=== PATIENT | female | born 1995 | race Two or more races ===

== ENCOUNTER 2023-01-09 10:16 | Outpatient (CLI) | payer BC, SELFPAY ==
[2023-01-09 11:15] LABS: Hematocrit 40.1 % (37.0-47.0); Mean Corpuscular HGB Conc 32.4 g/dl (32-36); Mean Corpuscular Hemoglobin 28.6 pg (26-34); Mean Corpuscular Volume 88.3 fl (80-100); Mean Platelet Volume 10.3 fl (7.4-10.4); Platelet Count Result 246 k/mm3 (150-375); Red Blood Count 4.54 M/mm3 (4.2-5.4); Red Cell Distribution Width 12.4 % (11.5-14.5); White Blood Count 6.5 K/mm3 (4.5-10.0)
[2023-01-09 11:34] LABS: Anion Gap 6 mmol/L (8-16); Blood Urea Nitrogen 8 mg/dL (7-17); Calcium 8.8 mg/dL (8.4-10.2); Carbon Dioxide 27 mmol/L (22-30); Chloride 104 mmol/L (98-107); Estimated Glomerular Filt Rate > 60; Glucose 82 mg/dL (65-110); Potassium 3.6 mmol/L (3.4-5.0); Sodium 137 mmol/L (137-145)
[2023-01-09 11:35] LABS: Alanine Aminotransferase 16 U/L (6-35); Albumin Level 4.1 g/dL (3.5-5.1); Alkaline Phosphatase 59 U/L (38-126); Aspartate Amino Transferase 23 U/L (14-36); Bilirubin,Total 0.3 mg/dL (0.2-1.3); CRP < 0.5 mg/dL (<1.0); Lipase 42 U/L (23-300)
[2023-01-09 12:19] LABS: Hepatitis B Surface Antigen Negative (Negative)
[2023-01-09 12:25] LABS: HAV RESULT Negative (Negative); Hepatitis B Core IgM Result Negative (Negative)
[2023-01-09 12:37] LABS: Hepatitis C Virus Antibody Negative (Negative)
[2023-01-09 13:07] LABS: Erythrocyte Sedimentation Rate 25 mm/hr (0-20)
[2023-01-12 10:38] LABS: Immunoglobulin A 163 mg/dL (47-310); TTG IGA AB <1.0 U/mL (<15.0)
== END 2023-01-09 10:17 | disposition home or self-care (01) ==
PROVIDERS: PCP Family Medicine; Visit Provider Nurse Practitioner
DX: R10.11 Right upper quadrant pain (principal); R19.4 Change in bowel habit; R19.7 Diarrhea, unspecified; R79.89 Other specified abnormal findings of blood chemistry; Z98.84 Bariatric surgery status
CPT/HCPCS: 36415; 80053; 80074; 82784; 83690; 84443; 85027; 85652; 86140; 86364

== ENCOUNTER 2023-01-10 11:17 | Outpatient (CLI) | payer BC, SELFPAY ==
[2023-01-18 03:13] LABS: Calprotectin, Stool 303 mcg/g
[2023-01-18 18:17] LABS: Pancreatic Elastase, Stool >500 mcg/g
== END 2023-01-10 11:18 | disposition home or self-care (01) ==
LOC: ANHLAB 11:18
PROVIDERS: PCP Family Medicine; Visit Provider Nurse Practitioner
DX: R10.11 Right upper quadrant pain (principal); R79.89 Other specified abnormal findings of blood chemistry; R19.4 Change in bowel habit; R19.7 Diarrhea, unspecified; Z98.84 Bariatric surgery status
CPT/HCPCS: 82653; 83993; 87045; 87427; 87449; 87493

== ENCOUNTER 2023-01-22 07:20 | Outpatient (CLI) | payer BC, SELFPAY ==
--- NOTE | ~2023-01-22 | MR_ITS ---
EXAMINATION: MR MRCP wo/w con/w 3D wo ind DATE: 01/22/2023 08:44 INDICATION: Right upper quadrant abdominal pain. TECHNIQUE: Magnetic resonance imaging (MRI) of the abdomen was performed without with 19 mL MultiHanc e intravenous contrast. Sequences included coronal T2-weighted FS FSE, coronal T2-weighted FSE, axial T1-weighted LAVA, coronal FS FIESTA, axial dual-echo T1-weighted SPGR, coronal lava-FLEX, sagittal T 2-weighted FSE, axial T2-weighted FSE, and axial DWI. Thick-slab T2-weighted FSE images were obtained for magnetic resonance cholangiopancreatography (MRCP). Maximum intensity projection 3-D reconstruct ions of the volumetric data were created by the technologist. Postcontrast sequences included coronal LAVA-flex and time course of axial T1-weighted LAVA. COMPARISON: None. FINDINGS: ABDOMEN MRI: The liver, spleen, pancreas, adrenal glands, and kidneys are normal. The gallbladder is absent. There are no dilated loops of bowel. There are no pathologically enlarged lymph nodes. There is no free intraperitoneal fluid. ABDOMEN MRCP: The common duct is normal and measures 3 mm. No choledocholithiasis. IMPRESSION: 1. No etiology for the patient's symptoms. Reviewed, dictated and finalized at location A.
== END 2023-01-22 07:21 | disposition home or self-care (01) ==
PROVIDERS: PCP Family Medicine; Visit Provider Nurse Practitioner
DX: R10.11 Right upper quadrant pain (principal); R11.0 Nausea; R79.89 Other specified abnormal findings of blood chemistry
CPT/HCPCS: 74183; 76376; A9577

== ENCOUNTER 2023-01-23 02:01 | Day surgery (SDC) | payer BC, SELFPAY ==
[2023-01-10 13:04] VITALS: BMI 32.0
[2023-01-23 10:28] VITALS: BP 130/100; PULSE 86; RESP 18; TEMP 36.3; O2SAT 100
[2023-01-23] MEDS: LACTATED RINGERS 1,000 ML 150 ML IV CONT (10:36)
--- NOTE | 2023-01-23 11:04 | WPDHPUPDATE1 ---
History and Physical Update Update Date/Time: 01/23/23 11:04 History and Physical has been reviewed, including an updated exam of the patient. There are NO changes in the patient's condition. Risks, benefits, and alternatives have been discussed and questions answered. Patient agrees to proceed with procedure.
--- NOTE | 2023-01-23 11:07 | WPDANESEPPF ---
Anes - Initial Pre Proc Eval Procedure: Operation Date: 01/23/23 12:30 Proposed Procedures p Esophagogastroduodenoscopy & Colonoscopy - Marshall Martínez MD Date/Time: 01/23/23 11:07 Surgeon: Marshall Martínez MD Pre Op Diagnosis: nausea, diarrhea, other fecal abnormalities Patient Data Age: 27 Gender: F Height: 1.73 m Weight: 92.6 kg Last Vital Signs Temp 97.4 F L 01/23/23 10:28 Pulse 86 01/23/23 10:28 Resp 18 01/23/23 10:28 BP 130/100 H 01/23/23 10:28 Pulse Ox 100 01/23/23 10:28 O2 Del Method Room Air 01/23/23 10:28 Allergies Allergy/AdvReac Type Severity Reaction Status Date / Time bee venom protein (honey bee) Allergy Unknown Unknown Verified 01/23/23 10:26 codeine Allergy Unknown Confusion Verified 01/23/23 10:26 milk Allergy Unknown Unknown Verified 01/23/23 10:26 morphine Allergy Unknown Confusion Verified 01/23/23 10:26 fentanyl Allergy Confusion Verified 01/23/23 10:26 hydromorphone [From Dilaudid] Allergy Confusion Verified 01/23/23 10:26 tramadol Allergy Confusion Verified 01/23/23 10:26 Home Medications Medication Instructions Recorded Confirmed Type albuterol sulfate 2.5 mg/3 mL 2.5 mg inhalation QID PRN 10/01/19 01/19/23 History (0.083 %) solution for nebulization Shortness Of Breath epinephrine 0.3 mg/0.3 mL 0.3 ml IM ONCE 10/01/19 01/19/23 History injection, auto-injector (EpiPen 2-Tahir) tazarotene 0.1 % topical cream 1 applic topical DAILY PRN other 10/01/19 01/19/23 History (Tazorac) cabergoline 0.5 mg tablet 0.25 mg PO 2XW 12/29/20 01/19/23 History cetirizine 10 mg tablet (Zyrtec) 10 mg PO DAILY 12/29/20 01/19/23 History fluticasone fur. 200 mcg-umeclid 1 inh inhalation DAILY 12/29/20 01/19/23 History 62.5 mcg-vilant 25 mcg inhalat.powder (Trelegy Ellipta) fluticasone propionate 50 1 - 2 spray intranasal DAILY PRN 01/11/21 01/19/23 Rx mcg/actuation nasal allergy symptoms #47.4 mL spray,suspension (Allergy Relief (fluticasone)) calcium citrate-vitamin D3 500 mg 3 tablet PO DAILY 02/21/21 01/19/23 History calcium-400 unit chewable tablet multivitamin 1 tablet PO BID 02/21/21 01/19/23 History polysaccharide iron complex 50 mg PO DAILY 02/21/21 01/19/23 History (NovaFerrum) montelukast 10 mg tablet 10 mg PO DAILY #90 tabs 09/19/22 01/19/23 Rx (Singulair) omeprazole 40 mg capsule,delayed 40 mg PO BID 12/21/22 01/19/23 History release hyoscyamine sulfate 0.125 mg 0.125 mg PO QID abdominal pain 01/10/23 01/19/23 History tablet (Levsin) sucralfate 1 gram tablet 1 g PO ACHS 01/10/23 01/19/23 History cyanocobalamin (vitamin B-12) 1,000 mcg subcut .[id number] 01/18/23 01/19/23 History 1,000 mcg/mL injection solution levalbuterol tartrate 45 1 puff inhalation DAILY 01/18/23 01/19/23 History mcg/actuation aerosol inhaler ondansetron 4 mg disintegrating 4 mg PO Q6H PRN nausea and 01/21/23 01/23/23 Rx tablet vomiting #5 tabs Patient hx anesthesia problems: none Family hx anesthesia problems: none Results Review: All pre-operative results and documents have been reviewed as part of the pre-operative evaluation. [facility] Past Medical History Medical History Acne ADHD Bee sting allergy Change in bowel habits Diarrhea Elevated fecal calprotectin Environmental allergies Family history of amyloidosis Insomnia Irritable bowel syndrome with diarrhea Mild intermittent asthma without complication Nausea Obesity Pituitary cyst Hyperprolactinemia - follows at [facility] Torn ACL Torn meniscus Surgical History Surgical History H/O knee surgery left meniscus repair - 09/2019 History of cholecystectomy 2012 History of repair of ACL left 2013 right 2014 History of repair of hiatal hernia 11/2020 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
--- NOTE | 2023-01-23 11:14 | SUR.OPER ---
EGD: [id number] COLON: Start 1123
[2023-01-23 11:36] VITALS: BP 135/94; PULSE 71; RESP 20; O2SAT 97
[2023-01-23 11:46] VITALS: BP 137/92; PULSE 76; RESP 21; O2SAT 96
[2023-01-23 11:56] VITALS: BP 133/93; PULSE 66; RESP 18; O2SAT 100
== END 2023-01-23 12:10 | disposition home or self-care (01) ==
PROVIDERS: PCP Family Medicine; Visit Provider Internal Medicine Gastroenterology
PROC: 0DJ08ZZ Inspection of Upper Intestinal Tract, Via Natural or Artificial Opening Endoscopic (ICD-10-PCS; CPT 43235; principal; 2023-01-23 12:30)
DX: K44.9 Diaphragmatic hernia without obstruction or gangrene (principal); K29.50 Unspecified chronic gastritis without bleeding; R11.0 Nausea; R19.7 Diarrhea, unspecified; Z79.51 Long term (current) use of inhaled steroids; J45.909 Unspecified asthma, uncomplicated; R79.89 Other specified abnormal findings of blood chemistry; Z98.84 Bariatric surgery status; F90.9 Attention-deficit hyperactivity disorder, unspecified type; G47.00 Insomnia, unspecified; K58.0 Irritable bowel syndrome with diarrhea; E22.1 Hyperprolactinemia; E66.9 Obesity, unspecified; Z68.31 Body mass index [BMI] 31.0-31.9, adult
CPT/HCPCS: 43239; 45380; 88305; J7120

== ENCOUNTER 2023-08-09 12:05 | Outpatient (CLI) | payer BC, SELFPAY ==
--- NOTE | ~2023-08-09 | CT_ITS ---
EXAMINATION: CT abdomen pelvis w con DATE: 08/09/2023 11:48 INDICATION: Unspecified abdominal pain. TECHNIQUE: Computed tomography (CT) of the abdomen and pelvis was performed with 100 mL Omnipaque 350 intravenous contrast. Automated exposure control and iterative reconstruction technique were employe d. The dose-length product was 713.56 mGy-cm. COMPARISON: Abdomen MRI 01/22/2023 FINDINGS: The visualized portions of the lung bases are clear without pneumonia or pleural effusion. The heart size is normal. No pericardial effusion. There are changes of gastric bypass procedure. The re is a small sliding hiatal hernia. The liver is normal. There are changes of cholecystectomy. The s pleen, pancreas, adrenal glands, and kidneys are normal. There are no dilated loops of bowel. The dagoberto endix is normal. There are no pathologically enlarged lymph nodes. There is no free intraperitoneal f luid. There is mild chronic anterior wedging of T11 vertebral body. IMPRESSION: 1. Small sliding hiatal hernia. Reviewed, dictated and finalized at location A.
[2023-08-09 12:28] LABS: Basophils Absolute Auto 0.1 K/mm3 (0.0-0.1); Basophils Percent Auto 0.9 % (0.2-1.2); Eosinophils Absolute Auto 0.1 K/mm3 (0-0.3); Eosinophils Percent Auto 1.2 % (0-4.4); Hematocrit 40.5 % (37.0-47.0); Hemoglobin 12.9 g/dL (12.0-15.0); Immature Granulocyte Absolute 0.02 K/mm3 (0.00-0.031); Immature Granulocyte Percent A 0.3 % (0-0.5); Lymphocytes Absolute Auto 2.48 K/mm3 (0.9-3.2); Lymphocytes Percent Auto 38.5 % (18.3-44.2); Mean Corpuscular HGB Conc 31.9 g/dl (32-36); Mean Corpuscular Hemoglobin 27.7 pg (26-34); Mean Corpuscular Volume 87.1 fl (80-100); Mean Platelet Volume 10.3 fl (7.4-10.4); Monocytes Absolute Auto 0.4 K/mm3 (0.1-0.6); Monocytes Percent Auto 6.7 % (2.6-8.5); Neutrophils Absolute Auto 3.4 K/mm3 (1.3-6.7); Neutrophils Percent Auto 52.4 % (45.5-73.1); Platelet Count Result 255 k/mm3 (150-375); Red Blood Count 4.65 M/mm3 (4.2-5.4); Red Cell Distribution Width 12.8 % (11.5-14.5); White Blood Count 6.4 K/mm3 (4.5-10.0)
[2023-08-09 12:41] LABS: Alanine Aminotransferase 16 U/L (6-35); Albumin Level 4.2 g/dL (3.5-5.1); Alkaline Phosphatase 77 U/L (38-126); Anion Gap 7 mmol/L (4-12); Aspartate Amino Transferase 23 U/L (14-36); Bilirubin,Total 0.3 mg/dL (0.2-1.3); Blood Urea Nitrogen 8 mg/dL (7-17); Calcium 9.2 mg/dL (8.4-10.2); Carbon Dioxide 23 mmol/L (22-30); Chloride 106 mmol/L (98-107); Estimated Glomerular Filt Rate > 60; Glucose 112 mg/dL (65-110); Potassium 4.3 mmol/L (3.4-5.0); Sodium 136 mmol/L (137-145)
[2023-08-09 12:57] LABS: Appearance Urine Clear (Clear); Bacteria Urine None Seen /hpf; Bilirubin Urine Negative (Negative); Blood Urine 2+ (Negative); Color Urine Yellow (Yellow); Glucose Urine UA Negative (Negative); Ketones Urine Negative (Negative); Leukocyte Esterase Ur Negative LEU/UL (Negative); Need Manual Microscopic Reviewed; Nitrate Urine Negative (Negative); Non Pathogenic Casts 0-2; Protein Urine Negative (Negative); RBC Urine 21-50 /hpf (0-2); Squamous Epithelial Cell Urine Occasional /hpf (Few); Urobilinogen Urine 0.2 mg/dL (<2.0); WBC Urine 0-5 /hpf (0-3); pH Urine 6.5 (5.0-9.0)
[2023-08-09 12:58] LABS: Add Urine Microscopic? YES; Specific Grav Ur 1.073 (1.001-1.035)
== END 2023-08-09 12:06 | disposition home or self-care (01) ==
LOC: ANHIMG 12:06
PROVIDERS: PCP Family Medicine; Visit Provider Family Medicine
DX: K44.9 Diaphragmatic hernia without obstruction or gangrene (principal); N39.0 Urinary tract infection, site not specified; R50.9 Fever, unspecified; E23.6 Other disorders of pituitary gland; Z79.899 Other long term (current) drug therapy
CPT/HCPCS: 36415; 74177; 80053; 81001; 85025; Q9967

== ENCOUNTER 2024-12-16 08:03 | Outpatient (CLI) | payer OTHER, SELFPAY ==
--- NOTE | ~2024-12-16 | XR_ITS ---
EXAMINATION: Lumbar Spine INDICATION: Low back pain. PROCEDURE: 7 images of the lumbar spine were obtained COMPARISON: None available FINDINGS: Lumbar vertebral body heights and alignment are within normal limits. No compression fracture in the lumbar spine. Cholecystomy clips are present. No abnormal subluxation with flexion or extension. Severe narrowing of the L5-S1 level, possible partial fusion of L5 and S1 vertebral bodies. Partial sacralization of the right transverse process of L5. Moderate degenerative change in the lower lumbar facet joints. IMPRESSION: 1.Severe narrowing of the L5-S1 level, possible partial fusion of L5 and S1 vertebral bodies. 2.Partial sacralization of the right transverse process of L5. 3.Moderate degenerative change in the lower lumbar facet joints. Consider an MRI of the lumbar spine for further assessment. Reviewed, dictated and finalized at location A. IMPRESSION: 1.Severe narrowing of the L5-S1 level, possible partial fusion of L5 and S1 irma tebral bodies. 2.Partial sacralization of the right transverse process of L5. 3.Moderate degenerative change in the lower lumbar facet joints. Consider an MRI of the lumbar spine for further assessment.
== END 2024-12-16 08:04 | disposition home or self-care (01) ==
PROVIDERS: PCP Nurse Practitioner Family; Visit Provider Nurse Practitioner Family
DX: M48.07 Spinal stenosis, lumbosacral region (principal); Q76.49 Other congenital malformations of spine, not associated with scoliosis; M47.816 Spondylosis without myelopathy or radiculopathy, lumbar region
CPT/HCPCS: 72114